=== PATIENT | female | born 1975 | race Caucasian/White ===

== ENCOUNTER → 2016-08-20 | Outpatient (CLI) | payer BC ==
--- NOTE | 2016-08-20 09:26 | MA ---
Screening Digital Mammogram Clinical Indications: Routine screening. Technique: Standard cephalocaudal and mediolateral oblique projections are obtained. This examinati on was processed by the [employer] computer aided detection system. Comparison: March 2014 Breast density: C; The breast tissue is heterogeneously dense, which could obscure detection of small masses. Findings: CAD was reviewed. Focal architectural distortion versus overlapping parenchymal structures upper right breast seen on the oblique lateral view only. If real, this is likely in the upper or out er right breast on the CC view. Impression: Possible new architectural distortion right breast. BI-RADS 0: Needs additional imaging evaluation, right breast.. Recommendation: Spot compression views, true-lateral view and ultrasound at the discretion of the in terpreting radiologist for further evaluation. Please fax a written or electronic order for a right breast diagnostic mammogram and ultrasound to [phone]. [facility] will send a result letter to the patient. Negative mammography should not preclude additional workup of a clinically suspicious finding. The patient's information is entered into a reminder system with a target due date for her next mammo gram.
== END ==
LOC: BRMIMAGING 07:46
DX: Z12.31 Encounter for screening mammogram for malignant neoplasm of breast (principal)
CPT/HCPCS: G0202

== ENCOUNTER → 2016-08-24 | Outpatient (CLI) | payer BC ==
--- NOTE | 2016-08-24 15:05 | MA ---
Diagnostic Digital Mammogram Right Breast With iCAD Analysis Reason for examination: Evaluate possible focal architectural change noted in the upper right breast the oblique view from the screening study August 20, 2016. Technique: Oblique, true lateral and craniocaudal spot compression views are obtained. Also, a true l ateral is performed. The examination is processed by the iCAD computer-aided detection system. Findings: The abnormality does not persist on diagnostic evaluation and it was probably related to bosch perimposition of normal glandular elements on the screening study. Impression: Negative diagnostic mammography. BI-RADS: 1. Recommendation: Resume routine mammographic screening in one year as long as physical examination is negative. A verbal report was given to the patient. [facility] with send a result letter.
== END ==
LOC: FIMAGING 13:55
PROVIDERS: ATTEND Family Medicine
DX: R92.8 Other abnormal and inconclusive findings on diagnostic imaging of breast (principal)
CPT/HCPCS: G0206

== ENCOUNTER → 2017-10-17 | Outpatient (CLI) | payer BC | LOC: FIMAGING 13:51 | PROVIDERS: ATTEND Family Medicine | DX: Z12.31 Encounter for screening mammogram for malignant neoplasm of breast (principal) ==